=== PATIENT | female | born 1945 | race Two or more races ===

== ENCOUNTER → 2023-11-24 | Day surgery (SDC) | payer OTHER ==
[~2023-11-24] VITALS: Ht 165.1 cm; Wt 103.0 kg
[~2023-11-24] MED LIST: ANGIOMAX 250 MG VIAL IV ONE; CHLO25TA2 PO; FURO40TA4 PO; HEPARIN IN NS 1000Units/500mL 1,500 ML ONE; HEPARIN SODIUM (PORCINE) 5000 UNITS/ML 1ML VIAL ONE; IODIXANOL 320MG/ML 100ML BTL IV ONE; LEVO50TA7 PO; LIDOCAINE 2%HCL (LOCAL ANESTH.) INJ 20ML MDV ONE; MIDAZOLAM HCL 2MG/2ML 2ml VIAL (1mg/ml) ONE; POTA-220 PO; PRAV20TA3 PO; PRIM50TA5 PO; PROP60CA34 PO; SODIUM CHL 0.9% 0 ML ONE; VERAPAMIL 2.5MG/ML INJ 2ML VIAL IV ONE; fentaNYL CITRATE 100 MCG/2 ML VL ONE
== END | disposition home or self-care (01) ==
LOC: CATH 06:27
PROVIDERS: ATTEND Internal Medicine
DX: R94.39 Abnormal result of other cardiovascular function study (principal); R00.1 Bradycardia, unspecified; I99.8 Other disorder of circulatory system
CPT/HCPCS: 93458; C1894; J1644; J2250; J3010; J7030; Q9967; 99152